=== PATIENT | male | born 1955 | race Caucasian/White ===

== ENCOUNTER 2016-11-23 15:02 | Emergency (ER) | payer OTHER ==
[~2016-11-23] VITALS: Ht 172.7 cm; Wt 100.0 kg
[~2016-11-23 15:02] MED LIST: LISI10TA2 PO
[2016-11-23 15:22] VITALS: BP 153/83; PULSE 70; RESP 20; O2SAT 97
[2016-11-23 16:08] LABS: BASOPHILS % (AUTO) 0.7 % (0-3); EOSINOPHILS % (AUTO) 1.3 % (0-5); MONOCYTES % (AUTO) 9.1 % (4-12); Mean Corpuscular Hemoglobin 36.1 pg (27.0-35.0); Mean Corpuscular Volume 111.2 fL (81-100); NEUTROPHILS % (AUTO) 72.8 % (40-74); Platelet Count 151 bil/L (150-400)
[2016-11-23 16:25] LABS: INR 0.94 ratio
[2016-11-23 16:58] VITALS: BP 128/77; PULSE 74; RESP 16; O2SAT 95
--- NOTE | 2016-11-23 18:05 | ED.REPORT ---
HPI-General Illness Date of Service November 23, 2016 ED Provider: Ever Cross DO Patient is a 60 year old male with a history of hypertension who presents to the ED due to a possibly irregular heartbeat. He denies shortness of breath, chest pain, nausea, vomiting or diaphoresis. The patient was seen earlier for a physical, where they recommended he come to the ED due to the irregular heartbeat. Patient is not currently taking any ASA. Nursing Notes Stated Complaint: POSS A-FIB SENT BY CLINIC Chief Complaint: Dysrhythmia/Cardiac Nursing Notes Reviewed: Yes Allergies: Coded Allergies: No Known Drug Allergies (Verified Allergy, Unknown, 12/18/14) Scheduled Lisinopril (Lisinopril) 10 Mg Tablet 10 MG PO DAILY General Time Seen by MD: 18:05 Chief Complaint Other (irregular heartbeat) Hx Obtained From: Patient Arrived By: Walk-in Onset Occurred: Onset unknown Severity: Current: No pain currently Recent Healthcare: No recent hospitalization, Recent doctor visit Past Medical History Past Medical History hypertension Past Surgical History hiatal hernia Smoking History Former Smoker Social History Alcohol Use: "Social" Drug Use: Denies drug use Other Social History: Local resident Ambulatory Status Independent Review of Systems Full Review of Systems Respiratory: Denies: Non-productive cough, Shortness of breath Cardiovascular: Denies: Chest pain GI: Denies: Nausea, Vomiting Skin: Denies Diaphoresis Complete sys rev & neg: except as marked. Physical Exam Vital Signs Vital Signs Date Time Temp Pulse Resp B/P Pulse Ox O2 Delivery O2 Flow Rate FiO2 11/23/16 19:23 69 16 154/102 98 Room Air 11/23/16 18:14 67 16 132/82 94 Room Air 11/23/16 16:58 74 16 128/77 95 Room Air 11/23/16 15:22 70 20 153/83 97 Room Air Initial VS: Reviewed General/Constitutional: Awake, Alert, No acute distress Head / Eyes: Atraumatic, Normocephalic, PERRL, EOMI Respiratory / Chest: Atraumatic, Breath sounds NL, Breath sounds = bilat, No respiratory distress Cardiovascular: Heart rate NL, Heart sounds NL atrial flutter, rate varies from 60-100 Chads 2 Vasc score: 1 Abdomen: Atraumatic, Soft, Non-tender Skin: Atraumatic, Color NL, No rash, Warm, Dry Neurologic: Oriented X3, Speech NL, No motor deficits, No sensory deficits Psychiatric: Affect NL, Mood NL Interpretation & Diagnostics Lab Results Interpretation Result Diagram: 11/23/16 1600 11/23/16 1600 Test 11/23/16 16:00 White Blood Count 5.4th/mm3 (3.8-10.1) Red Blood Count 3.85mil/mm3 (4.40-5.80) Hemoglobin 13.9g/dL (13.8-17.2) Hematocrit 42.8% (41.0-50.0) Mean Corpuscular Volume 111.2fL (81-100) Mean Corpuscular Hemoglobin 36.1pg (27.0-35.0) Mean Corpuscular Hemoglobin Concent 32.5% (32.0-37.0) Red Cell Distribution Width 14.4% (12.3-15.4) Platelet Count 151bil/L (150-400) Neutrophils (%) (Auto) 72.8% (40-74) Lymphocytes (%) (Auto) 15.9% (14-46) Monocytes (%) (Auto) 9.1% (4-12) Eosinophils (%) (Auto) 1.3% (0-5) Basophils (%) (Auto) 0.7% (0-3) Prothrombin Time 10.0sec (8.1-12.5) Prothromb Time International Ratio 0.94ratio Sodium Level 139mEq/L (134-144) Potassium Level 3.9mEq/L (3.5-5.2) Chloride Level 101mEq/L (97-108) Carbon Dioxide Level 24mmol/L (18-29) Blood Urea Nitrogen 13mg/dL (8-27) Creatinine 0.68mg/dL (0.76-1.27) Estimat Glomerular Filtration Rate 126mL/min (>59) Glucose Level 121mg/dL (60-99) Calcium Level 9.5mg/dL (8.5-10.1) Total Bilirubin 0.4mg/dL (0.0-1.2) Aspartate Amino Transf (AST/SGOT) 22U/L (0-50) Alanine Aminotransferase (ALT/SGPT) 29U/L (0-44) Alkaline Phosphatase 70U/L (25-160) Troponin T < 0.010ug/L (0.0-0.011) Total Protein 7.0g/dL (6.4-8.4) Albumin 4.0g/dL (3.4-5.0) Hold Meyers Top Tube Received (Received) ECG Interpretation ECG Interpretation: Atrial flutter with 4:1 AV block rate 68 Time: 16:11 Interpreted by: ED physician X-Ray Chest Interpretation Chest Xray Interpretation: IMPRESSION: 1. Large hiatal hernia. 2. Prominent right cardiac contour may reflect atrial enlargement or possible pericardial effusion. Dictated by: Nav Johnson M.D. on 11/23/2016 at 19:04 Approved by: Nav Johnson M.D. on 11/23/2016 at 19:05 View: Portable, 1 view Interpretation / Wet Read by: Interpret - Radiologist Re-Eval/Medical Decision Med Decision/Clinical Course Heart rate ranged from 60-90's. Discussed patient's Chads 2 - Vasc score, which was 1, with Dr. Mckoy. He recommends the patient start on ASA and follow up with Dr. Herbert and then cardiology. Time of Eval: 18:40 Re-Evaluation/Progress Note: Discussed Xray results, plan to start ASA and discharge. The patient understands and agrees to the plan for discharge. All questions were addressed. Consultation #1: Referral / Consult Name: Byron Mckoy MD Consulted With: Cardiology Call Returned at: 18:34 Deaf Interpreter: Agrees with eval, Agrees with plan Note: Recommends the patient follow up with Dr. Herbert and start on ASA Consultation #2: Referral / Consult Name: Randall Cook MD Consulted With: On-call physician Call Returned at: 18:45 Deaf Interpreter: Will see patient, Agrees with eval, Agrees with plan Counseled Regarding: Diagnosis, Lab results, Need for follow-up, When/why to return to ED Discharge & Departure Primary Impression: Atrial flutter Atrial flutter type: unspecified Qualified Code: I48.92 - Unspecified atrial flutter Disposition: Home Discharge Condition All VS Reviewed: Yes Condition: Stable Patient Instructions: Atrial Flutter (ED) Additional Instructions: Your X-ray results showed that the right side of your heart looks enlarged or you have a possible pericardial effusion, this also needs to be discussed with your primary doctor and cardiology.I talked to Dr. Mckoy, a rough carpenter who recommends you start taking a baby aspirin daily. I also talked to Dr. Cook, who was union representative for Dr. Herbert, who said you should call tomorrow to set up a follow up appointment to discuss being referred to cardiology. Alcohol cessation could also help stop your irregular heart beat. Return to the emergency department if you develop any new or worsening symptoms including chest pain or shortness of breath. Referrals: Mark Herbert MD (PCP) Byron Mckoy MD Attestation Portions of this note were transcribed by Izabel Hilliard. I, Dr. Cross personally performed the history, physical exam and medical decision-making; I reviewed and confirmed the accuracy of the information in the transcribed note. Signed by: Shahla Tipton, 11/23/16 and [id number] copies to: Mark Herbert MD; Byron Mckoy MD, Todd P DO November 23, 2016 18:05 Jillian Hilliard November 23, 2016 18:13
[2016-11-23 18:14] VITALS: BP 132/82; PULSE 67; RESP 16; O2SAT 94
[2016-11-23 19:02] VITALS: BP 99/66; PULSE 79; RESP 16; O2SAT 100
--- NOTE | 2016-11-23 19:06 | DRSVH ---
PROCEDURE: X-RAY CHEST ONE VIEW, PORTABLE ([id number]) INDICATIONS: dysrhythmia TECHNIQUE: One view of the chest was acquired. COMPARISON: None. FINDINGS: Surgical changes and devices: None. Lungs and pleura: No pleural effusions or pneumothorax. There are linear bibasilar opacities likely representing atelectasis. Mediastinum: There is a large hiatal hernia. The right cardiac contour appears enlarged. Bones and chest wall: No suspicious bony lesions. Overlying soft tissues appear unremarkable. IMPRESSION: 1. Large hiatal hernia. 2. Prominent right cardiac contour may reflect atrial enlargement or possible pericardial effusion. Dictated by: Nav Johnson M.D. on 11/23/2016 at 19:04 Approved by: Nav Johnson M.D. on 11/23/2016 at 19:05
[2016-11-23 19:23] VITALS: BP 154/102; PULSE 69; RESP 16; O2SAT 98
== END 2016-11-23 19:37 | disposition home or self-care (01) ==
LOC: SED 15:02
DX: I48.92 Unspecified atrial flutter (principal); I10 Essential (primary) hypertension; Z87.891 Personal history of nicotine dependence

== ENCOUNTER → 2017-02-01 | Day surgery (SDC) | payer OTHER ==
[2017-02-01] VITALS (13 sets, daily range): BP systolic 119–142; BP diastolic 69–83; PULSE 81–88; RESP 18–24; O2SAT 94–96
[~2017-02-01] VITALS: Ht 172.7 cm; Wt 106.0 kg
[~2017-02-01] MED LIST changes: +0.9% Sodium Chloride 1,000 ML IV SCH; +0.9% Sodium Chloride 1,000 ML ONE; +APIX5TAB PO; +HYDROcodone-APAP 5-325 mg Tablet PO PRN; +Heparin 1,000 Unit/mL 10 mL Inj ONE; +Heparin 10,000 Unit/1,000 mL NS Premix IV ONE; +LISI10TA PO; +METO25TA6 PO; +Ondansetron 2 mg/mL 2 mL Inj IVPUSH PRN; +fentaNYL-PF 50 mCg/mL 2 mL Inj ONE
--- NOTE | 2017-02-01 06:00 | NUR ---
ADMISSION NOTE MALE PT ADMITTED FOR ABLATION. DISCUSSED PLAN OF CARE WITH PT AND FAMILY. SEE ADMIT AND FLOW SHEET
[2017-02-01 06:39] LABS: Mean Corpuscular Volume 110.4 fL (81-100)
[2017-02-01 06:55] LABS: INR 0.89 ratio
--- NOTE | 2017-02-01 10:30 | PROCED ---
[address] [address] PROCEDURE NOTE PATIENT: APRYL CARLOS : 1955 MR#: [id number] ADMIT: 02/01/2017 JOB ID: [id number] DATE OF SERVICE: 02/01/2017 PREOPERATIVE DIAGNOSIS(ES): Typical counter-clockwise isthmus flutter. POSTOPERATIVE DIAGNOSIS(ES): Normal sinus rhythm. PROCEDURES PERFORMED: 1. Comprehensive electrophysiology study with left HEPA support via coronary sinus catheter. 2. Three-dimensional electroanatomic mapping using the CARTO 3 system. 3. Atrial flutter ablation (supraventricular tachycardia ablation; cavotricuspid isthmus ablation). 4. Fluoroscopy. SURGEON: Bryon Persaud M.D., electrophysiology attending. CHAPTER RELATIONS ADMINISTRATOR: Sisi Isaac. ANESTHESIA: Bolus dosing of Versed and fentanyl are utilized for appropriate level of sedation. INDICATION: The patient is a pleasant 61-year-old man with drug refractory symptomatic atrial flutter leading to mild LV systolic dysfunction. After discussion of risks and benefits of catheter based mapping, she opted to proceed. PROCEDURE DESCRIPTION: The patient was taken to the EP laboratory in a fasting, nonsedated state where he was prepped in the usual sterile fashion. The right inguinal region was infiltrated with 1% lidocaine. Then using modified Seldinger technique, one 8 and two 7-Turkish sheaths were inserted into the right femoral vein. Under fluoroscopic guidance, a deflectable decapolar catheter was advanced to the coronary sinus with the most proximal bipoles at the os of the sinus. A 20 pole Livewire catheter was used to encircle the tricuspid anulus. The patient was in atrial flutter at the onset of the case. A J curve irrigated SmartTouch ablation catheter was brought to the field and used to create a three-dimensional map of the right atrium, tricuspid anulus and cavotricuspid isthmus. The ablation catheter was placed at the tricuspid isthmus and entrainment of the flutter was performed. The post pacing interval minus tachycardia cycle length was less than 30 msec. Atrial activation pattern on the Livewire catheter confirmed this is a counter-clockwise isthmus dependent flutter. A linear series of ablations was then performed from the ventricular to the IVC aspect of the cavotricuspid isthmus ultimately leading to breakage of the flutter to sinus rhythm. Pacing was undertaken from the coronary sinus while monitoring the atrial activation pattern on the Livewire catheter. Medial to lateral conduction was still intact. High voltage electrograms were targeted and ultimately medial to lateral block was achieved. Lateral to medial was confirmed. A 30 minute waiting period was undertaken during which bidirectional block was confirmed. During the course of this study, we completed a comprehensive electrophysiology study with right atrial pacing and recording, right ventricular pacing and recording, His bundle recording and pacing coronary sinus catheter. All catheters and sheaths were removed. Manual pressure was held for hemostasis. The patient was transferred to the [facility] for monitoring, bedrest and discharge. COMPLICATIONS: None. ESTIMATED BLOOD LOSS: 5 cc. FINDINGS: 1. Baseline rhythm is atrial flutter. Post ablation, he is in sinus rhythm with an RR interval of 1012 msec, MO 187 msec, QRS 101 msec, QT 367 msec. 2. Intracardiac intervals. AH interval 133 msec, HV 56 msec. 3. Retrograde conduction: No VA conduction was seen at [address] 4. Cavotricuspid isthmus ablation as described above with post ablation bidirectional block. Specifically trans isthmus time was 165 msec in a medial to lateral direction and 157 msec in the lateral to medial direction. IMPRESSION: Successful cavotricuspid isthmus ablation for typical counter-clockwise isthmus flutter. PLAN: 1. Bedrest x4 hours. 2. Continue Eliquis for the next month. 3. Continue low-dose beta blockade for blood pressure. 4. Followup with Saleem Ambrosio in clinic in four weeks. ATTENDING STATEMENT: Bryon Persaud M.D., electrophysiology attending was present for and supervised/performed all aspects of this procedure.
--- NOTE | 2017-02-01 14:40 | NUR ---
[facility] DISCHARGE ASSUMED CARE OF PT AT 1015 UPON RETURN FROM POLITICAL RESEARCH SCIENTIST. RIGHT GROIN HAS REMAINED SOFT, NON TENDER, NO BLEEDING OR HEMATOMA NOTED. MONITOR SHOWS SR 80s AND POST ABLATION EKG WAS OBTAINED. PT COMPLETED BEDREST AND AMBULATED IN [place] AND USED THE BATHROOM, RIGHT GROIN REMAINED STABLE. DISCHARGE INSTRUCTIONS INCLUDING F/U, MEDICATIONS, AND POST SEDATION AND ABLATION INSTRUCTIONS WERE REVIEWED AND PT VERBALIZED UNDERSTANDING. HE WAS DISCHARGED AT 1440 WITH FAMILY IN STABLE CONDITION.
== END | disposition home or self-care (01) ==
LOC: SOUO 00:43
PROVIDERS: ATTEND Internal Medicine Cardiovascular Disease
DX: I48.3 Typical atrial flutter (principal); Z79.01 Long term (current) use of anticoagulants; I10 Essential (primary) hypertension; E78.5 Hyperlipidemia, unspecified; G47.33 Obstructive sleep apnea (adult) (pediatric)
CPT/HCPCS: 36415; 80048; 85027; 85610; 93005; 93613; 93621; 93653; C1730; C1731; C1732; C1893; J0131; J1644; J2250; J3010; J7030